=== PATIENT | male | born 1975 | race Caucasian/White ===

== ENCOUNTER 2018-09-25 12:28 | Emergency (ER) | payer OTHER ==
[2018-09-25 13:06] VITALS: BP 112/58; PULSE 79; TEMP 98.3; BMI 29.7
--- NOTE | 2018-09-25 14:11 | PDOC ---
History of Present Illness - General Chief Complaint: Pain Stated Complaint: ABD PAIN Time Seen by Provider: 09/25/18 14:11 History Source: Patient, Printmaker Used Exam Limitations: Language Barrier - History of Present Illness Initial Comments: 09/25/18 14:28 HPI/ROS performed with phone surgical resident - [id number] 43 year old male with no PMH presented to ED for diffuse abdominal pain x3 days. Pt reported the pain is intermittent, diffuse, no alleviating or aggravating factors. Pt admitted to nausea/vomiting - denied blood. Pt denied fever, diarrhea, blood in stool, chest pain, shortness of breath. Pt also admitted to bilateral hand/knee pain. Past History - Past Medical History Allergies/Adverse Reactions: Allergies Allergy/AdvReac Type Severity Reaction Status Date / Time No Known Allergies Allergy Verified 09/25/18 13:06 Home Medications: Ambulatory Orders NK [No Known Home Medication] 09/25/18 COPD: No - Suicide/Smoking/Psychosocial Hx Smoking History: Never smoked Review of Systems - Review of Systems Able to Perform ROS?: Yes Comments:: 09/25/18 14:26 General: denied fever, chills, generalized weakness. HEENT: denied sore throat, rhinorrhea, ear pain. Heart: denied chest pain, palpitations, syncope, diaphoresis. Respiratory: denied shortness of breath, cough, sputum production, hemoptysis. Abdomen: admitted to abdominal pain, nausea, vomiting. denied diarrhea, constipation, blood in stool. : denied dysuria, increased urinary frequency, hematuria, urinary incontinence , flank pain. Back: denied back pain. Musculoskeletal: admitted to bilateral hand/knee pain. denied muscle pain, joint swelling. Neurological: denied headache, dizziness, numbness, tingling, weakness. Skin: denied rash, laceration, abrasion. *Physical Exam - Vital Signs Last Vital Signs Temp Pulse Resp BP Pulse Ox 98.3 F 79 18 112/58 L 97 09/25/18 13:03 09/25/18 13:03 09/25/18 13:03 09/25/18 13:03 09/25/18 13:03 - Physical Exam Comments: 09/25/18 14:26 Constitutional: Well-nourished, Well-developed, appearing stated age. HEENT: head is normocephalic, atraumatic. EOMI. PERRLA. Neck: supple. Full ROM. Heart: regular rhythm. no murmurs, rubs or gallops. Lungs: clear to auscultation bilaterally. no crackles, rhonchi or wheezing. no stridor. Abdomen: soft, flat. tenderness to palpation of epigastrium/RUQ. murphys positive. normal bowel sounds. no rebound, guarding, masses. Extremities: peripheral pulses intact. no lower extremity edema. full ROM bilateral wrist/hands/elbow/knees. no rash/swelling to bilateral wrist/hands/ elbows/knees. Neurological: CN 2-12 grossly intact. moves all four extremities. Psych: awake, alert, oriented x3. follows commands. answers questions appropriately. ED Treatment Course - LABORATORY CBC & Chemistry Diagram: 09/25/18 14:25 09/25/18 14:25 Medical Decision Making - Medical Decision Making 09/25/18 14:27 43 year old male with above PMH presented to ED for diffuse abdominal pain, nausea/vomiting x3 days. Initial Vital Signs Temp Pulse Resp BP Pulse Ox 98.3 F 79 18 112/58 L 97 09/25/18 13:03 09/25/18 13:03 09/25/18 13:03 09/25/18 13:03 09/25/18 13:03 Afebrile. No tachycardia. No tachypnea. Mild diastolic hypotension. No hypoxia on room air. Labs ordered: CBC, CMP, lipase, mag Medications ordered: pepcid, maalox, zofran, normal saline 1000 cc bolus once, UA/UC Imaging ordered: RUQ US 09/25/18 15:00 CBC WBC 7.0 K/mm3 (4.0-10.0) 09/25/18 14:25 RBC 5.08 M/mm3 (4.00-5.60) 09/25/18 14:25 Hgb 15.1 GM/dL (11.7-16.9) 09/25/18 14:25 Hct 43.6 % (35.4-49) 09/25/18 14:25 MCV 85.7 fl (80-96) 09/25/18 14:25 MCH 29.8 pg (25.7-33.7) 09/25/18 14:25 MCHC 34.7 g/dl (32.0-35.9) 09/25/18 14:25 RDW 12.9 % (11.9-15.9) 09/25/18 14:25 Plt Count 188 K/MM3 (134-434) 09/25/18 14:25 MPV 8.7 fl (7.5-11.1) 09/25/18 14:25 Absolute Neuts (auto) 5.0 K/mm3 (1.5-8.0) 09/25/18 14:25 Neutrophils % 71.7 % (42.8-82.8) 09/25/18 14:25 Lymphocytes % 20.0 % (8-40) 09/25/18 14:25 Monocytes % 6.4 % (3.8-10.2) 09/25/18 14:25 Eosinophils % 1.6 % (0-4.5) 09/25/18 14:25 Basophils % 0.3 % (0-2.0) 09/25/18 14:25 Nucleated RBC % 0 % (0-0) 09/25/18 14:25 No leukocytosis. No anemia. 09/25/18 15:33 CMP Sodium 138 mmol/L (136-145) 09/25/18 14:25 Potassium 3.6 mmol/L (3.5-5.1) 09/25/18 14:25 Chloride 105 mmol/L (98-107) 09/25/18 14:25 Carbon Dioxide 27 mmol/L (21-32) 09/25/18 14:25 Anion Gap 5 MMOL/L (8-16) L 09/25/18 14:25 BUN 19.1 mg/dL (7-18) H 09/25/18 14:25 Creatinine 0.9 mg/dL (0.55-1.3) 09/25/18 14:25 Est GFR (CKD-EPI)AfAm 121.67 09/25/18 14:25 Est GFR (CKD-EPI)NonAf 104.98 09/25/18 14:25 Random Glucose 118 mg/dL (74-106) H 09/25/18 14:25 Calcium 8.3 mg/dL (8.5-10.1) L 09/25/18 14:25 Magnesium 2.4 mg/dL (1.8-2.4) 09/25/18 14:25 Total Bilirubin 1.5 mg/dL (0.2-1) H 09/25/18 14:25 AST 39 U/L (15-37) H 09/25/18 14:25 ALT 70 U/L (13-61) H 09/25/18 14:25 Alkaline Phosphatase 60 U/L (45-117) 09/25/18 14:25 Total Protein 7.3 g/dl (6.4-8.2) 09/25/18 14:25 Albumin 4.0 g/dl (3.4-5.0) 09/25/18 14:25 Lipase 135 U/L (73-393) 09/25/18 14:25 No electrolyte abnormalities. No MITUL. Mild transaminitis. Elevated bilirubin. Lipase wnl. Medications ordered: toradol 30 mg IV once 09/25/18 16:23 RUQ US report: EXAM#: TYPE/EXAM: RESULT: [id number] US/ABDOMEN US -LIMITED Right upper quadrant, epigastric pain with tenderness Right upper abdomen ultrasound. The liver measures 17.2 cm in sagittal length with moderate to marked increase echotexture. Gallbladder is adequately distended without intraluminal stones or thickening of its wall. No intra or extrahepatic bile duct dilatation is seen. The right kidney measures 11 cm sagittal length and appears unremarkable. Nonvisualization of the pancreas likely due to overlying bowel gas Visualized portion of the proximal abdominal aorta and inferior vena cava appear unremarkable. Normal flow in the main portal vein. IMPRESSION: Limited examination, likely due to the patient's body habitus and bowel gas. Almost borderline hepatomegaly with fatty infiltration versus hepatocellular disease. Please correlate with liver enzymes. No gallstones identified. Nonvisualization of the pancreas. Reported By: Lisa Ivy MD 09/25/18 1613 09/25/18 17:17 Pt informed of results, reported pain improved with toradol use. Pt advsised to be admitted for GI evaluation in the setting of abdominal pain with transaminitis. Pt refused admission, stated he would like to be discharged and follow up outpatient. Pt given [facility] [place] Pamphlet to call and make appointment for follow up. Pt given GI referral. Pt discharged. *DC/Admit/Observation/Transfer Diagnosis at time of Disposition: Transaminitis, History of fatty infiltration of liver, Abdominal pain - Discharge Dispostion Disposition: HOME Condition at time of disposition: Improved Decision to Admit order: No - Referrals Referrals: Rey Jimenez MD [Staff Physician] - Zeferino Gaming DO [Staff Physician] - Jasper Vargas MD [Staff Physician] - - Patient Instructions Printed Discharge Instructions: DI for Abdominal Pain-Adult, GERD Diet, DI for Nonalcoholic Fatty Liver Disease Additional Instructions: You were seen today for abdominal pain. Your lab work revealed your liver enzymes are elevated. Follow up with a primary care doctor on this finding within 3 days. Your Ultrasound showed a fatty liver, normal gall bladder and no gall stones. Bring the Ultrasound report given to you to your appointment with your primary care doctor. I have provided you with a referral to our clinic, which accepts patient's without health insurance. Call tomorrow morning and ask for the soonest available appointment. You MUST follow up with in 3 days. Take ibuprofen over the counter for pain. Take as advised on label. Buy over the counter. Take with food as this medicine can irritate your stomach. Do not eat any fried or spicy food, coffee, tea, caffeine, tomatoes, chocolate, beer, liquor, wine or fatty food - as these foods will irritate your stomach and gall bladder. Follow up with a graduate teaching assistant within 3 days. Your care is not complete until you follow up. I have provided you with multiple referrals. If you cannot secure an appointment because you do not have insurance the clinic will assist you. Return to the Emergency Department for increasing pain despite ibuprofen use, chest pain, vomiting, shortness of breath, fever, vomiting blood, severe back pain, lightheadedness like you may pass out or any other new, worsening or concerning symptoms. [place]IZ[place] TRANSLATION PROVIDED VIA [employer] TRANSLATE Te vieron hoy por dolor abdominal. Tello trabajo de laboratorio revel que nida enzimas hepticas estn elevadas. Carlos un seguimiento con un mdico de atencin primaria sobre yamile hallazgo dentro de los 3 rivas. Tello ecografa mostr un hgado graso, vescula biliar normal y sin clculos biliares. Lleve el informe de ultrasonido que recibi a tello carlita con tello mdico de atencin primaria. Le he proporcionado cade referencia a nuestra clnica, que acepta pacientes sin seguro mdico. Llame maana por la maana y solicite la carlita ms pronto disponible. DEBES hacer un seguimiento en 3 rivas. Nambe ibuprofeno sobre el mostrador para el dolor. Ilana jose se aconseja en la etiqueta. Compra sin receta. Tmelo con alimentos ya que yamile medicamento puede irritar tello estmago. No coma alimentos fritos o picantes, caf, t, cafena, tomates, chocolate, cerveza, licor, vino o alimentos grasos, ya que estos alimentos le irritarn el estmago y la vescula biliar. Carlos un seguimiento con un gastroenterlogo dentro de los 3 rivas. Tello atencin no est completa hasta que carlos un seguimiento. Te he proporcionado mltiples referencias. Si no puede asegurar cade carlita porque no tiene seguro, la clnica lo ayudar. Regrese al Departamento de Emergencias para aumentar el dolor a pesar del uso de ibuprofeno, dolor de pecho, vmitos, falta de aliento, fiebre, vmitos de hernandez, dolor de espalda becky, mareo jose si pudiera desmayarse o cualquier otro sntoma nuevo, que empeore o relacionado con los sntomas. Print Language: [place] CITIZEN - Post Discharge Activity Forms/Work/School Notes: Back to Work
[2018-09-25] MEDS ORDERED: ONDANSETRON 4 MG/2 ML VIAL IVPUSH ONE (14:26)
[2018-09-25] MEDS ORDERED: MAG HYDROX/AL HYDROX/SIMETH 30 ML UNIT-DOSE CUP PO ONE (14:26)
[2018-09-25] MEDS ORDERED: SODIUM CHLORIDE 1,000 ML IV STA (14:26)
[2018-09-25] MEDS ORDERED: FAMOTIDINE 20 MG/50 ML IVPB 20 MG/50 ML MG IVPB ONE ×2 (14:26→15:01)
[2018-09-25 14:34] LABS: BASO % 0.3 % (0-2.0); EOS % 1.6 % (0-4.5); HEMATOCRIT 43.6 % (35.4-49); HEMOGLOBIN 15.1 GM/dL (11.7-16.9); MCH 29.8 pg (25.7-33.7); MCHC 34.7 g/dl (32.0-35.9); MEAN CELL VOLUME 85.7 fl (80-96); MEAN PLT VOLUME 8.7 fl (7.5-11.1); MONO % 6.4 % (3.8-10.2); NEUT % 71.7 % (42.8-82.8); PLATELET COUNT 188 K/MM3 (134-434); RBC 5.08 M/mm3 (4.00-5.60); RDW 12.9 % (11.9-15.9)
[2018-09-25 15:01] LABS: BILIRUBIN,TOTAL 1.5 mg/dL (0.2-1); BLOOD UREA NITROGEN 19.1 mg/dL (7-18); CALCIUM 8.3 mg/dL (8.5-10.1); CREATININE 0.9 mg/dL (0.55-1.3); MAGNESIUM 2.4 mg/dL (1.8-2.4); POTASSIUM 3.6 mmol/L (3.5-5.1); TOT PROT 7.3 g/dl (6.4-8.2)
[2018-09-25] MEDS ORDERED: MAG HYDROX/AL HYDROX/SIMETH 30 ML UNIT-DOSE CUP ONE (15:01)
[2018-09-25] MEDS ORDERED: ONDANSETRON 4 MG/2 ML VIAL ONE (15:01)
[2018-09-25] MEDS ORDERED: KETOROLAC TROMETHAMINE 30 MG/1 ML VIAL IVPUSH ONE (15:34)
[2018-09-25] MEDS ORDERED: KETOROLAC TROMETHAMINE 30 MG/1 ML VIAL ONE (16:31)
[2018-09-25 16:54] LABS: PH,URINE 5.5 (5.0-8.0); URINE APPEARANCE CLEAR; URINE BILIRUBIN NEGATIVE (NEGATIVE); URINE COLOR YELLOW; URINE GLUCOSE (UA) 2+ (NEGATIVE); URINE KETONE TRACE (NEGATIVE); URINE LEUK ESTERASE NEGATIVE (NEGATIVE); URINE NITRITE NEGATIVE (NEGATIVE); URINE PROTEIN NEGATIVE (NEGATIVE)
--- NOTE | 2018-09-25 17:19 | PDOC ---
Documentation entered by Freda Kwan SCRIBE, acting as scribe for Tessa Granados MD. Tessa Granados MD: This documentation has been prepared by the Aquiles esparza Adrianna, SCRIBE, under my direction and personally reviewed by me in its entirety. I confirm that the documentation accurately reflects all work, treatment, procedures, and medical decision making performed by me. Attending Attestation - Resident Resident Name: Nathalie Rich - ED Attending Attestation I have performed the following: I have examined & evaluated the patient, The case was reviewed & discussed with the resident, I agree w/resident's findings & plan, Exceptions are as noted - HPI HPI: The patient is a 43 year old male, with no significant PMH, who presents to the ED for evaluation of abdominal pain for 3 days. Patient notes the pain is felt diffusely and is intermittent in nature. He endorses NBNB nausea and vomit. Denies fever, chills, diarrhea, chest pain, or SOB. Allergies: NKA, NKDA Surgical History: None reported Social History: None reported 09/25/18 15:40 - Physicial Exam PE: 09/25/18 17:17 GENERAL: The patient is in no acute distress. ENT: Ears normal, nares patent, oropharynx clear without exudates. Moist mucous membranes. NECK: Normal range of motion, supple, no nuchal rigidity LUNGS: Breath sounds equal, clear to auscultation bilaterally. HEART:Regular rate and rhythm, normal S1 and S2 without murmur, rub or gallop. ABDOMEN: Soft, mild lower abdominal tenderness, no involuntary guarding or rebound, normoactive bowel sounds. EXTREMITIES: Normal range of motion, no edema. NEUROLOGICAL: Cranial nerves II through XII grossly intact. Normal speech. No focal neurological deficits. SKIN: Warm, Dry, normal turgor, no rashes or lesions noted. - Medical Decision Making 09/25/18 15:25 Laboratory Tests 09/25/18 09/25/18 14:25 14:25 WBC 7.0 Hgb 15.1 Hct 43.6 Plt Count 188 BUN 19.1 H Creatinine 0.9 Total Bilirubin 1.5 H AST 39 H ALT 70 H Lipase 135 US pending 09/25/18 17:14 US demonstrates hepatomegaly, fatty infiltration, hepatocellular disease, GB no stones or thickening of it wall Abd pain improving with Toradol Will plan to discharge to home Follow up with PMD 09/25/18 17:26 EXAM#: TYPE/EXAM: RESULT: [id number] US/ABDOMEN US -LIMITED Right upper quadrant , epigastric pain with tenderness IMPRESSION: Limited examination, likely due to the patient's body habitus and bowel gas. Almost borderline hepatomegaly with fatty infiltration versus hepatocellular disease. Please correlate with liver enzymes. No gallstones identified. Nonvisualization of the pancreas. Reported By: Lisa Ivy MD 09/25/18 16:13
== END 2018-09-25 17:43 | disposition home or self-care (01) ==
LOC: JER 12:28
PROC: 3E033GC Introduction of Other Therapeutic Substance into Peripheral Vein, Percutaneous Approach (ICD-10-PCS; principal; 2018-09-25)
PROC: 3E0333Z Introduction of Anti-inflammatory into Peripheral Vein, Percutaneous Approach (ICD-10-PCS; 2018-09-25)
PROC: 3E0337Z Introduction of Electrolytic and Water Balance Substance into Peripheral Vein, Percutaneous Approach (ICD-10-PCS; 2018-09-25)
DX: R74.0 Nonspecific elevation of levels of transaminase and lactic acid dehydrogenase [LDH] (principal); K76.0 Fatty (change of) liver, not elsewhere classified; R10.9 Unspecified abdominal pain
CPT/HCPCS: 36415; 76705-TC; 80053; 81003; 83690; 83735; 85025; 87086; 99282-25; J7030

== ENCOUNTER 2021-09-16 15:45 | Emergency (ER) | payer OTHER ==
[2021-09-16 16:24] VITALS: BP 122/71; PULSE 66; TEMP 98.3; BMI 29.7
== END 2021-09-16 19:24 | disposition home or self-care (01) ==
LOC: JERFT 15:45
DX: M79.605 Pain in left leg (principal)
CPT/HCPCS: 73502-TC-LT-FY; 73552-TC-LT-FY; 73562-TC-LT-FY; 93971-TC; 99285-25

== ENCOUNTER 2023-07-06 13:27 | Emergency (ER) | payer OTHER ==
[2023-07-06 14:03] VITALS: TEMP 98; BMI 32.9
[2023-07-06] MEDS ORDERED: ACETAMINOPHEN INJECTION 100 ML IVPB ONE (14:39)
[2023-07-06] MEDS: ACETAMINOPHEN 1000 MG/100 ML BAG IVPB ONE (14:44)
[2023-07-06 14:45] LABS: BASO % 0.5 % (0-2.0); EOS % 0.6 % (0-4.5); HEMATOCRIT 46.8 % (35.4-49); HEMOGLOBIN 16.3 GM/dL (11.7-16.9); LYMPH % 41.7 % (8-40); MEAN CELL VOLUME 82.9 fl (80-96); MEAN PLT VOLUME 8.1 fl (7.5-11.1); NEUT % 49.2 % (42.8-82.8); PLATELET COUNT 216 10^3/uL (134-434); RBC 5.64 M/mm3 (4.00-5.60); RDW 13.1 % (11.9-15.9); WHITE BLOOD COUNT 7.3 K/mm3 (4.0-10.0)
[2023-07-06 14:58] LABS: POTASSIUM 4.3 mmol/L (3.5-5.1)
[2023-07-06 15:00] LABS: BLOOD UREA NITROGEN 12.9 mg/dL (7-18)
[2023-07-06 15:04] LABS: CREATININE 0.9 mg/dL (0.55-1.3)
[2023-07-06 15:05] LABS: TOT PROT 7.5 g/dl (6.4-8.2)
[2023-07-06 17:38] VITALS: BP 158/68; PULSE 66; RESP 18
== END 2023-07-06 17:38 | disposition home or self-care (01) ==
LOC: JER 13:27
PROC: 3E033NZ Introduction of Analgesics, Hypnotics, Sedatives into Peripheral Vein, Percutaneous Approach (ICD-10-PCS; principal; 2023-07-06)
DX: R51.9 Headache, unspecified (principal); R10.2 Pelvic and perineal pain; M25.561 Pain in right knee; M25.562 Pain in left knee; V89.2XXA Person injured in unspecified motor-vehicle accident, traffic, initial encounter; Y93.I9 Activity, other involving external motion; Y92.410 Unspecified street and highway as the place of occurrence of the external cause
CPT/HCPCS: 36415; 70450-TC; 71045-TC-FY; 72125-TC; 72170-TC-FY; 73562-TC-LT-FY; 73562-TC-RT-FY; 74177-TC; 80053; 85025; 99285-25; J0131; Q9967